=== PATIENT | male | born 1965 ===

== ENCOUNTER 2017-10-25 07:20 | Day surgery (SDC) | payer OTHER ==
[~2017-10-25 07:20] MED LIST: Buffered Lidocaine 0.9% SYRIN* 5 ML/SYR SYRINGE INTRADERM ONE
[2017-10-25] MEDS ORDERED: Lidocain 1% EPI 1:100,000 * 30 ML MDV ONE (08:25)
[2017-10-25] MEDS ORDERED: Lidocaine 4% TOPICAL* 50 ML TOP.SOLN ONE (08:25)
[2017-10-25] MEDS ORDERED: Bacitracin OINTMENT* 0.5% 0.5 oz TUBE ONE (08:25)
[2017-10-25] MEDS ORDERED: Oxymetazoline 0.05% NASAL SPR* 15 ML BTL ONE (08:25)
[2017-10-25] MEDS ORDERED: fentaNYL* 50 MCG/ML 2 ML VIAL (100 MCG VIAL) ONE (08:37)
[2017-10-25] MEDS ORDERED: Lidocaine 2% PF * 5 ML VIAL ONE (08:37)
[2017-10-25] MEDS ORDERED: Propofol* 10 MG/ML 20 ML BTL IV PUSH ONE (08:37)
[2017-10-25] MEDS ORDERED: fentaNYL* 50 MCG/ML 2 ML VIAL (100 MCG VIAL) IV PRN (09:07)
[2017-10-25] MEDS ORDERED: Naloxone* 0.4 MG/ML 1 ML VIAL IV PRN (09:07)
[2017-10-25] MEDS ORDERED: oxyCODONE TAB* 5 MG TAB PO PRN (09:07)
[2017-10-25] MEDS ORDERED: Ketorolac INJ* 30 MG/ML 1 ML VIAL IV PRN (09:07)
[2017-10-25] MEDS ORDERED: Acetaminophen TAB* 325 MG PO PRN (09:07)
[2017-10-25] MEDS ORDERED: EPHEDrine (Pressors)* 50 MG/ML VIAL ONE (09:21)
[2017-10-25] MEDS ORDERED: Ketorolac INJ* 30 MG/ML 1 ML VIAL ONE (10:50)
[2017-10-25 11:03] VITALS: BP 116/69
--- NOTE | 2017-10-26 08:06 | OP ---
DATE OF OPERATION: 10/25/17 - SDS DATE OF : 65 SURGEON: Meet Yoon MD PRE-OP DIAGNOSES: 1. Septal deviation. 2. Turbinate hypertrophy. POST-OP DIAGNOSES: 1. Septal deviation. 2. Turbinate hypertrophy. OPERATIVE PROCEDURE: Nasal septoplasty and inferior turbinate reduction and outfracture using the nasal debrider. COMPLICATIONS: None. DISPOSITION: Good. SPECIMENS: None. ESTIMATED BLOOD LOSS: Minimum. DESCRIPTION OF PROCEDURE: The patient was taken to the operating room, placed in the supine position on the operating table. General anesthesia was induced and he was maintained with laryngeal mask airway anesthesia. He was draped for the surgery. His nose was packed with cottonoids impregnated with oxymetazoline , 4% lidocaine. After several minutes these were removed. His septum and inferior turbinates were injected with 1% lidocaine with epinephrine. An incision was made in the right anterior septum. Mucoperichondrial flap was raised. Bony cartilaginous junction was opened. A contralateral posterior flap was raised. The anterior bony septum was removed with double action scissors up high and using the Caitlin, we removed the bone below this. A cartilaginous window was made with the [place] knife. The posterior inferior cartilaginous septum was removed. This was later morselized and placed back in place before quilting. The spurring along the maxillary crest was removed. The cartilage that had been morselized was placed. The wound was closed with 4- 0 chromic simple interrupted sutures at the hemitransfixion incision and then 4- 0 gut quilting stitch. The anterior and inferior turbinates were addressed using a 15 blade to make an incision in the anterior aspect. Mucoperichondrial flap was raised. The inferior turbinate debrider was used to debride the submucosa. These were then outfractured. Magnetic splints were smeared with antibiotic ointment and sutured in place with Prolene. The patient tolerated this procedure well. No complications. Transferred to the recovery room in stable condition. [id number]/[facility] #: [id number] [facility]OS[facility]ITALDavid
== END 2017-10-25 11:03 | disposition home or self-care (01) ==
LOC: OR 07:20
PROVIDERS: ATTEND Otolaryngology
DX: J34.2 Deviated nasal septum (principal); J34.3 Hypertrophy of nasal turbinates; I10 Essential (primary) hypertension; E78.00 Pure hypercholesterolemia, unspecified; E11.9 Type 2 diabetes mellitus without complications; Z87.891 Personal history of nicotine dependence
CPT/HCPCS: A9270-GY; J1885; J2704; J3010